=== PATIENT | female | born 1980 | race Caucasian/White ===

== ENCOUNTER 2025-01-29 07:28 | Outpatient (OUT) | payer BC, SELFPAY ==
--- OUTSIDE RECORDS SUMMARY | 2025-01-15 05:15 | XMS_ITS ---
Author Organization [facility] [place] Address [address] [place] [address] Care Team Providers Care B2B Sales Executive Name Role Phone Rhiannon Andrew Primary Care Provider Allergies Allergen (clinical drug ingredient) Drug/Non Drug Allergy documented on EMR Reaction Allergy Type Onset Date Status sulfamethoxazole / trimethoprim Bactrim rash Drug Allergy Active shrimp allergenic extract Shrimp (Diagnostic) Unknown Drug Allergy Active Shellfish (FN) Shellfish-derived Products Unknown Drug Allergy Active Penicillin rash Drug Allergy Active REASON FOR VISIT wellness- needs labs done, Pain in the left armpit area- did go get her mammogram, diag mammogram and US- does have to follow-up every 6 months Medications Medication SIG (Take, Route, Frequency, Duration) Notes Start Date End Date Status Vitamin E Active Albuterol Sulfate HFA 108 (90 Base) MCG/ACT 1 puff Inhalation every 4 hrs PRN PRN 09/21/2023 Active Biotin Active Zinc Active Probiotic Active Multivitamin Active Social History Tobacco Use: Social History Observation Description Date Details (start date - stop date) Never Smoker NA - NA Tobacco Use/Smoking Question Answer Notes Patient is a nonsmoker Vital Signs Blood pressure systolic 124 mm Hg 01/16/20 25 Blood pressure diastolic 80 mm Hg 025 Height 57 in 01/15/2025 Weight 135.4 lbs 01/15/2025 BMI 29.3 kg/m2 01/15/2025 Encounters Encounter Location Date Provider Diagnosis [facility] [address] [place] [address] 01/15/2025 Andrew Jurado Well adult Z00.0 0 Assessments Encounter Date Diagnosis (ICD Code) Assessment Notes Treatment Notes Treatment Clinical Notes Section Notes 01/15/2025 Well adult (ICD-10 - Z00.00) Plan Of Treatment Pending Test Test Name Order Date HEMOGLOBIN A1C (GLYCO) 01/15/2025 IRON, TOTAL 01/15/2025 LIPID PANEL (CHOL/TRIG/HDL/LDL) 01/16/20 25 VITAMIN D, 25 LEVEL (TOTAL) 01/15/2025 Insulin Level 01/15/2025 THYROID PANEL (T4/TSH/FREE T3) 5 CMP (COMP MET ROMAN) w/eGFR CKD-EPI 2024 CBC WITH DIFF 01/15/2025 Progress Notes * Amber HANNON RDOB: [birth year] (44 yo F)Acc No.[id number]:01/15/2025 Progress Note Patient: Amber PERALES Provider: Irving Jurado ([facility]), :1980 A ge:44 Y S ex:Female Date:01/15/2025 Address:[address] [place] [address], [id number] Check In:08:58 AM ESTCheck O ut:09:46 AM EST Subjective: * Chief Complaints: * W shan- needs labs donePain in the left armpit area- did go get her mammogram, diag mammogram and US- does have to follow-up every 6 months * HPI: D epression Screening: PHQ-2 (2015 Edition) L ittle interest or pleasure in doing things??Not at all F eeling down, depressed, or hopeless? N ot at all T otal Score 0 + FH Breast cancer - will see how blood work loosk - may brittany MRI due to FH breast cnacner and masses in breast - -mildly supicious. * ROS: E ENT: hearing changes d enies. v isual changes d enies.?non-healing mouth sores d enies. s wollen glands or neck lumps d enies. h oarseness d enies. s ore throat d enies. d ifficulty swallowing d enies. n ose bleeds d enies. n brinda congestion d enies. e ar ache d enies. e ar discharge?denies. r inging in ears d enies. l ight sensitivity d enies. e ye pain d enies. b lurring d enies. e ye irritation d enies. d ouble vision d enies.?vision loss d enies. G eneral/Constitutional: Sweats: D enies. F atigue d enies. S leep problems d enies. A norexia d enies. M alaise d enies. W eight loss d enies.?Fatigue or Weakness d enies. F ever or Chills d enies. C ardiovascular: Shortness of Breath w/lying flat d enies. L ightheadedness/dizziness d enies. C hest tightness/ heavy pressure d enies. S welling of legs, ankles, or feet d enies. W aking up with shortness of breath d enies. C hest pain denies. P alpitations d enies. W eight gain d enies. R espiratory: Chronic or frequent cough d enies. C oughing up blood?denies. D ifficulty breathing d enies. P roductive cough d enies. S noring?denies. S hortness of breath that awakens from sleep (PND) d enies. C hest pain d enies. S putum production d enies. W heezing d enies. M usculoskeletal: Joint pain d enies. J oint Fluid d enies. B ack pain d enies. K nee pain d enies. N monica pain d enies. J oint Stiffness d enies. M uscle cramps d enies. W eakness of muscles d enies. A rthritis d enies. M uscle aches d enies. P ain in shoulder(s) d enies. S wollen joints d enies. * Active Problem List Z00.00 Well adult Modified On:11/24/2022W/U Status:confirmed R19.7 Diarrhea Modified On:11/24/2022/U Status:confirmed J45.909 Asthma Modified On:09/21/2023W/U Status:confirmed * Medical History: * Surgical History: C -section x1 * Hospitalization/Major Diagno stic Procedure: D enies Past Hospitalization * Family History: F ather: alive, glaucoma, crohns disease, diagnosed with Unspecified heart disease. M other: alive, diagnosed with Unspecified heart disease. M aternal Grandmother: alive, COPD. * Social History: T obacco Use: T obacco Use/Smoking P atient is a n onsmoker * Medications: T akingAlbuterol Sulfate HFA 108 (90 Base) MCG/ACT Aerosol Solution 1 puff Inhalation every 4 hrs PRN , Notes to Pharmacist: PRNBiotin Multivitamin Probiotic Vitamin E Zinc Taking Albuterol Sulfate HFA 108 (90 Base) MCG/ACT Aerosol Solution 1 puff Inhalation every 4 hrs PRN , Notes to Pharmacist: PRNTaking Biotin Taking Multivitamin Taking Probiotic Taking Vitamin E Taking Zinc DiscontinuedlevoFLOXacin 750 MG Tablet 1 tablet Orally Once a day predniSONE 20 MG Tablet 3 tablets Orally Once a day Medication List reviewed and reconciled with the patientDiscontinued levoFLOXacin 750 MG Tablet 1 tablet Orally Once a day Discontinued predniSONE 20 MG Tablet 3 tablets Orally Once a day Medication List reviewed and reconciled with the patient * Allergies: P enicillin: rashBactrim: rashShellfish-derived ProductsShrimp (Diagnostic)no[Allergies Verified] Objective: * Vitals: W t:135.4lbs, Ht: 57 in, BP:124/80mm Hg, BMI:29.3Index, Ht-cm: 144.78 cm, Wt-k.42 kg. * Examination: P hysical Exam: GENERAL: w ell developed, well nourished, in no acute distress. HEAD: n ormocephalic/atraumatic. EYES: p upils equal, round and reactive to light, conjunctivae and sclerae normal. EARS: n o deformity or lesion of external ear, canals and TM appear normal bilaterally, TM's intact, not inflamed with normal light reflex, hearing grossly normal to conversational speech. NOSE: n o deformity, discharge, inflammation, or lesions.? MOUTH: m ucous membranes moist, normal oropharynx and posterior pharynx without lesions or exudates, tongue normal, dentition normal. NECK: n monica supple, no masses or palpable cervical nodes, trachea midline, thyroid without nodules, masses, tenderness, or enlargement. CHEST: n o chest wall deformity, no chest wall tenderness.? LUNGS: n ormal respiratory effort and clear to auscultation, no wheezes, rales, or rhonchi, good air exchange. CARDIO: r egular rate and rhythm, normal S1 and S2, nor murmur, rub, or gallop. PULSES: n ormal capillary refill. ABDOMEN: s oft, non-distended, non-tender, no masses. MUSCULOSKELETAL: n o deformity or scoliosis noted, normal range of motion, joints normal, no erythema, edema, effusion, or ecchymosis. EXTREMITY: n o clubbing, cyanosis, edema, or deformity with normal ROM in both upper and lower bilateral extremities. NEUROLOGIC: g rossly normal. SKIN: n o rashes, ulcerations, or suspicious lesions. LYMPH NODES: n o cervical adenopathy, nodes normal. MENTAL STATUS: a lert and oriented x3, normal mood and affect. Assessment: * Assessment: 1. W ell adult - Z00.00 (Primary) Plan: * Treatment: * Procedure Codes: * Preventive Medicine: Screenings/Counseling: B IL ACTION PLAN Above Normal BMI Follow-up D ietary management education, guidance, and counseling * * Sign off status: Completed Visit Status: C HK (Check Out) true * Provider: Irving Jurado ([facility])MD Date: 0 01/15/2025 Generated for Phu ruffin/Debra/eTransmitting on: 0 01/29/2025 07:36 AM EDT History and Physical Notes * HPI (History of Present Illness) Category Sub-Category Detail Notes Category Not es Depression Screening PHQ-2 (2015 Edition) Little interest or pleasure in doing things?: Not at all + FH Breast cancer - will see how blood work loosk - may brittany MRI due to FH breast cnacner and masses in breast - -mildly supicious Feeling down, depressed, or hopeless?: N ot at all Total Score: 0 Examination Category Sub-Category Detail Notes Category Not es Physical Exam GENERAL: well developed, well nourished, in no acute distress HEAD: normocephalic/atraum atic EYES: pupils equal, round and reactive to light, conjunctivae and sclerae normal EARS: no deformity or lesi on of external ear, canals and TM appear normal bilaterally, TM's intact, not inflamed with normal light reflex, hearing grossly normal to conversational speech NOSE: no deformity, discha rge, inflammation, or lesions MOUTH: mucous membranes bassam st, normal oropharynx and posterior pharynx without lesions or exudates, tongue normal, dentition normal NECK: neck supple, no mass es or palpable cervical nodes, trachea midline, thyroid without nodules, masses, tenderness, or enlargement CHEST: no chest wall deform ity, no chest wall tenderness LUNGS: normal respiratory e ffort and clear to auscultation, no wheezes, rales, or rhonchi, good air exchange CARDIO: regular rate and rhy thm, normal S1 and S2, nor murmur, rub, or gallop PULSES: normal capillary ref ill ABDOMEN: soft, non-distended, non-tender, no masses RECTAL: MUSCULOSKELETAL: no deformity or scol iosis noted, normal range of motion, joints normal, no erythema, edema, effusion, or ecchymosis EXTREMITY: no clubbing, cyanosi s, edema, or deformity with normal ROM in both upper and lower bilateral extremities NEUROLOGIC: grossly normal SKIN: no rashes, ulceratio ns, or suspicious lesions LYMPH NODES: no cervical adenopat hy, nodes normal MENTAL STATUS: alert and oriented x 3, normal mood and affect
--- OUTSIDE RECORDS SUMMARY | 2025-01-29 07:36 | XMS_ITS | Clinical Summary ---
Author Organization [facility] Address [address] [place] [address] Care Team Providers Care Supervisor Data Processing Name Role Phone Marv Jurado MD Primary Care Provider [phone] Allergies Active Allergy Reactions Criticality Noted Date Comments Amoxicillin 12/12/2022 Other Reaction(s): Unknown Amoxicillin-Pot Clavulanate 12/13/19 Other Reaction(s): Unknown Penicillin G 12/12/2022 Other Reaction(s): Unknown Shellfish-Derived Products 3 Other Reaction(s): Unknown Shrimp (Diagnostic) 12/12/2022 Other Reaction(s): Unknown Medications albuterol HFA 90 mcg/act inhaler Inhale every 6 (six) hours if needed for wheezing. Active beclomethasone HFA (Qvar RediHaler) 40 MCG/ACT inhaler Inhale 40 mcg in the morning and 40 mcg before bedtime. Rinse mouth with water after use to reduce aftertaste and incidence of candidiasis. Do not swallow.. Active alpha tocopherol (Natural Vitamin E) 400 units capsuleIndicati ons:Mastalgia Take 1 capsule (400 Units) by mouth Daily 30 capsule 11 5 12/19/19 26 Active Active Problems Problem Noted Date Diagnosed Date Intrauterine device surveillance 01/26/2023 Encounters Date Type Department Care Team Description 01/04/2025 Orders Only [facility] [address] [place] [address] Zafar Hardwick MD Mammogram abnormal (Primary Dx); Mastalgia; Lymph nodes enlarged 01/04/2025 Results Follow-Up [facility] [address] [place] [address] Zafar Hardwick MD Bilateral breast US limited 01/01/2025 2:30 PM EDT Ancillary Procedure [facility] [address] [place] [address] Mastalgia 01/01/2025 2:00 PM EDT Ancillary Procedure [facility] [address] [place] [address] Mastalgia 01/01/2025 Travel 12/20/2024 Results Follow-Up [facility] [address] [place] [address] Zafar Hardwick MD IGP, APT HPV,RFX 16/18,45 12/18/2024 9:45 AM EDT Office Visit [facility] [address] [place] [address] Zafar Hardwick MD Encounter for gynecological examination without abnormal finding (Primary Dx); Encounter for screening mammogram for malignant neoplasm of breast; Encounter for screening for cervical cancer; Intrauterine device surveillance; Mastalgia 12/18/2024 Travel from Last 3 Months Family History Relation Name Status Comments Father Alive Mother Alive Paternal Grandfather Paternal Grandmother Social History Tobacco Use Types Packs/Day Years Used Date Smoking Tobacco: Never Smokeless Tobacco: Never Alcohol Use Standard Drinks/Week Comments Yes 1 (1 standard drink = 0.6 oz pur e alcohol) AUDIT-C Answer Date Recorded Q1: How often do you have a drink containing alc ohol? Monthly or less 12/18/2023 Q2: How many drinks containi ng alcohol do you have on a typical day when you are drinking? 1 or 2 12/18/2023 Q3: How often do you have si x or more drinks on one occasion? Less than monthly 12/18/2023 PHQ-2 Answer Date Recorded Patient Health Questionnaire-2 Score 0 12/18/2023 Comments No Sex and Gender Information Value Date Recorded Sex Assigned at Female 12/05/2022 8:32 PM EDT Legal Sex Female 11:47 PM EDT Gender Identity Female 12/05/2022 8:32 PM EDT Sexual Orientation Straight 12/05/2022 8: 32 PM EDT Last Filed Vital Signs Vital Sign Reading Time Taken Comments Blood Pressure 118/68 12/18/2024 9:49 AM EDT Pulse - - Temperature - - Respiratory Rate - - Oxygen Saturation - - Inhaled Oxygen Concentration - - Weight 61.2 kg (135 lb) 12/18/2024 9:49 AM EDT Height 143.5 cm (4' 8.5 ) 12/12/2022 12:48 PM ED T Body Mass Index 29.73 12/12/2022 12:48 PM EDT Plan of Treatment Upcoming Encounters Date Type Department Care Team (Late st Contact Info) Description 12/24/2025 9:45 AM EDT Office Visit [facility] [address] [place] [address] Zafar Hardwick MD [address] [place] [address] Procedures Procedure Name Priority Date/Time Associated Diagnosis Comments BI US BREAST LIMITED BILATERAL Routine 01/01/2025 2:34 PM EDT Mastalgia BI MAMMOGRAM DIAGNOSTIC TOMOSYNTHESIS BILATERAL Routine 01/01/2025 2:01 PM EDT Mastalgia IGP, APT HPV,RFX 16/18,45 Routine 12/18/2024 12:00 AM EDT Encounter for gynecological examination without abnormal finding Encounter for screening for cervical cancer from Last 3 Months Results * Bilateral breast US limited (01/01/2025 2:34 PM EDT) Anatomical Region Laterality Modality Breast Bilateral Ultrasound 01/02/2025 3:35 PM EDT Impressions 01/02/2025 3:45 PM EDT Impression: Enlarged axillary lymph nodes, 1 moderately enlarged lymph node on the right and 3 mildly enlarged lymph nodes on the left. No obvious associated cortical thickening. Findings are most likely reactive, other possibly would be less likely. Likely 2 right breast cysts, the largest likely cyst correlates with the asymmetric density on the mammogram study. No obvious neoplasm. When correlating all studies no convincing evidence of neoplasm. Follow-up diagnostic mammogram study of the right breast is recommended in 6 months. Follow-up ultrasound study of the breasts to include both axillary regions as well as the right breast from the 9:00 to the 12 o'clock position to include areas of interest recommended in 6 months. BI-RADS 3 ELECTRONICALLY SIGNED BY: Jordan Mays M.D. Narrative 01/02/2025 3:45 PM EDT Examination: BI US BREAST LIMITED BILATERAL Reason for Study: bilateral axillary pain Comparison: Diagnostic mammogram study of the breasts dated 01/01/2025. Technique: Bilateral breast ultrasound study was performed. Both axillary regions were evaluated. Images on the right were also obtained from the 9 to 12 o'clock position. Images on the left were also obtained from the 11:00 to 3 o'clock position. Findings: On the right at the 10 o'clock position approximately 5 cm from the nipple decreased echogenicity measuring 2.0 x 1.3 x 0.9 cm likely representing a cyst. This finding correlates with the asymmetric density noted on the mammogram study. At the 12 o'clock position approximately 3.6 cm from the nipple area of decreased echogenicity likely representing a cyst measuring 0.6 x 0.6 x 0.5 cm. In the right axillary region compatible with a mild to moderately enlarged lymph node measuring 3.4 x 2.7 x 1.5 cm. No obvious cortical thickening, the finding is likely reactive. On the left no obvious focal mass from the 11:00 to 3 o'clock position. In the left axillary region findings compatible with 3 mildly enlarged lymph nodes measuring 2.2 x 1.9 x 0.9 cm, 1.8 x 1.5 x 1.2 cm and 1.6 x 1.4 x 1.2 cm. No obvious associated cortical thickening, findings are likely reactive. us Zafar Hardwick MD IMG US PROCEDURES Final Result * Bilateral diagnostic mammogram with tomosynthesis (01/01/2025 2:01 PM EDT) Anatomical Region Laterality Modality Breast Bilateral Mammography 01/02/2025 3:20 PM EDT Impressions 01/02/2025 3:35 PM EDT No specific evidence of malignancy seen in either breast. Asymmetric density on the right likely representing a cyst when correlated with ultrasound study. Ultrasound study demonstrates likely right breast cysts as well as nonspecific bilateral axillary adenopathy greater on the right most likely reactive. Follow- up diagnostic mammogram study of the right breast with compression views in the area of interest and true lateral view is recommended in 6 months. Bilateral breast ultrasound study to include both axillary regions as well as the right breast from the 9:00 to the 12 o'clock position to include areas of interest recommended in 6 months to assess stability. BIRADS 3 - Probably Benign Findings DENSITY: The breasts are heterogeneously dense, which may obscure small masses. FOLLOW-UP: Diagnostic Mammogram in 6 Months, breast ultrasound in 6 months Board Certified Radiologists. Accredited by the ACR and FDA. MAMMOGRAPHY IS VERY IMPORTANT TO YOUR HEALTH. THE [place]IET[employer] GUIDELINES RECOMMEND THAT WOMEN 40 YEARS OF AGE AND OLDER SHOULD HAVE A MAMMOGRAM EVERY YEAR. A REMINDER LETTER WILL BE SENT AT THE APPROPRIATE TIME. ELECTRONICALLY SIGNED BY: Jordan Mays M.D. Narrative 01/02/2025 3:35 PM EDT EXAMINATION: BI MAMMOGRAM DIAGNOSTIC TOMOSYNTHESIS BILATERAL CLINICAL HISTORY: bilateral mastalgia axillary TECHNIQUE: Diagnostic digital mammogram study of both breasts was performed with 2D and 3D tomosynthesis imaging. Study was compared to the screening mammogram study of the breasts dated 01/22/2024 and bilateral breast ultrasound study dated 01/01/2025. FINDINGS: Standard views of the breasts as well as true lateral views were obtained. Fairly well-circumscribed asymmetric density measuring approximately 1.8 x 1.6 cm noted in mid/upper/outer portion of the right breast, likely representing a cyst when correlated with ultrasound. No convincing evidence of neoplasm. Ultrasound study demonstrates likely right breast cysts as well as nonspecific bilateral axillary adenopathy greater on the right most likely reactive. Zafar Hardwick MD IMG BI PROCEDURES Final Result * IGP, APT HPV,RFX 16/18,45 (12/18/2024 12:00 AM EDT) Diagnosis: Comment [facility] Comment:NEGATIVE FOR INTRAEP ITHELIAL LESION OR MALIGNANCY. Specimen Adequacy: Comment [facility] Comment: Satisfactory for evaluation. Endocervical and/or squamous metaplastic cells (endocervical component) are present. Clinician Provided ICD10: Comment [facility] Comment: Z01.419 Z12.4 Performed By: Comment [facility] Comment:Delores Del Valle, Cytolog ist (ASCP) Cyto Comments . [facility] Note: Comment [facility] Comment: The Pap smear is a screening test designed to aid in the detection of premalignant and malignant conditions of the uterine cervix. It is not a diagnostic procedure and should not be used as the sole means of detecting cervical cancer. Both false-positive and false-negative reports do occur. Test Methodology: Comment [facility] Comment: This liquid based ThinPrep(R) pap test was screened with the use of an image guided system. HPV Aptima Negative Negative [facility] Comment: This nucleic acid amplification test detects fourteen high-risk HPV types (16,18,31,33,35,39,45,51,52,56,58,59,66,68) without differentiation. Vaginal Fluid 12/18/2024 12/19/2024 Narrative [facility] - 12/20/2024 9:07 AM EDT Performed at: - [address] [id number] Precision Lens Generator: Dinorah Lau MD, Phone: [phone] Performed at: - [facility] [id number] Precision Lens Generator: Dinorah Lau MD, Phone: [phone] Specimen Comment: No. of containers..01 ThinPrep Vial us Zafar Hardwick MD LAB BLOOD ORDERABLES Final Res ult [facility] from Last 3 Months Insurance BCBS Care Teams Supervisor Data Processing Relationship Specialty Start Date End Date Marv Jurado MD PCP - General 12/11/22
--- OUTSIDE RECORDS SUMMARY | 2025-01-29 07:36 | XMS_ITS | Encounter Summary ---
Author Organization [facility] Address [address] [place] [address] Care Team Providers Care Dispatcher Chief Oil Name Role Phone Marv Jurado MD Primary Care Provider [phone] Encounter Details Date Type Department Care Team (Late st Contact Info) Description 12/20/2024 Results Follow-Up [facility] [address] [facility] [address] [place] [phone] Zafar Hardwick MD [address] [facility] [address] [place] [address] IGP, APT HPV,RFX 16/18,45 Social History Tobacco Use Types Packs/Day Years [...] Orientation Straight 12/05/2022 8: 32 PM EDT documented as of this encounter Plan of Treatment Upcoming Encounters Date Type Department Care Team (Late st Contact Info) Description 12/24/2025 9:45 AM EDT Office Visit [facility] [address] [place] [address] Zafar Hardwick MD [address] [facility] [address] [place] [address] documented as of this encounter Visit Diagnoses Not on filedocumented in this encounter Care Teams Dispatcher Chief Oil Relationship Specialty Start Date End Date Marv Jurado MD PCP - General 12/11/22 documented as of this encounter
--- OUTSIDE RECORDS SUMMARY | 2025-01-29 07:36 | XMS_ITS | Encounter Summary ---
Author Organization [facility] Address [address] [place] [address] Care Team Providers Care Electronics Design Engineer Name Role Phone Marv Jurado MD Primary Care Provider [phone] Encounter Details Date Type Department Care Team (Late st Contact Info) Description 01/04/2025 Results Follow-Up [facility] [address] [facility] [address] [place] [phone] Zafar Hardwick MD [address] [facility] [address] [place] [address] Bilateral breast US limited Social History Tobacco Use Types Packs/Day Years [...] 8:32 PM EDT Sexual Orientation Straight 12/05/2022 8 :32 PM EDT documented as of this encounter Miscellaneous Notes * Result Encounter Note - Zafar Hardwick MD - 01/04/2025 12:48 PM EDT Confirm pt makes appt documented in this encounter Plan of Treatment Upcoming Encounters Date Type Department Care Team (Late st Contact Info) Description 12/24/2025 9:45 AM EDT Office Visit [facility] [address] [place] [address] Zafar Hardwick MD [address] [facility] [address] [place] [address] documented as of this encounter Visit Diagnoses Not on filedocumented in this encounter Care Teams Electronics Design Engineer Relationship Specialty Start Date End Date Marv Jurado MD PCP - General 12/11/22 documented as of this encounter
--- OUTSIDE RECORDS SUMMARY | 2025-01-29 07:36 | XMS_ITS | Patient Health Record ---
Author Organization [facility] in [place] Address [address] [place] [address] Care Team Providers Care Heel Molder Name Role Phone Andrew Jurado Primary Care Provider Allergies Allergen (clinical drug ingredient) Drug/Non Drug Allergy documented on EMR Reaction Allergy Type Onset Date Status sulfamethoxazole / trimethoprim Bactrim rash Drug Allergy Active shrimp allergenic extract Shrimp (Diagnostic) Unknown Drug Allergy Active Shellfish (FN) Shellfish-derived Products Unknown Drug Allergy Active Penicillin rash Drug Allergy Active Reason For Referral No Information Medications Medication SIG (Take, Route, Frequency, Duration) Notes Start Date End Date Status Vitamin E Active Albuterol Sulfate HFA 108 (90 Base) MCG/ACT 1 puff Inhalation every 4 hrs PRN PRN 09/21/2023 Active Biotin Active Multivitamin Active Zinc Active Probiotic Active Social History Tobacco Use: Social History Observation Description Date Details (start date - stop date) Never Smoker NA - NA Tobacco Use/Smoking Question Answer Notes Patient is a nonsmoker Problems Problem Type SNOMED Code ICD Code Onset Dates Problem Status W/U Status Risk Notes Problem Asthma (842143475) Asthma (J45.909) Active confirmed Problem Diarrhea (R19.7) Active confirmed Problem Well adult (122762123) Well adult (Z00.00) Active confirmed Vital Signs Blood pressure diastolic 80 mm Hg 01/15/2025 Height 57 in 01/15/2025 Blood pressure systolic 124 mm Hg 01/15/2025 Weight 135.4 lbs 01/15/2025 BMI 29.3 kg/m2 01/15/2025 Encounters Encounter Location Date Provider Diagnosis [facility] [address] [place] [address] 01/15/2025 Andrew Jurado Well adult Z00.0 0 Assessments Encounter Date Diagnosis (ICD Code) Assessment Notes Treatment Notes Treatment Clinical Notes Section Notes 01/15/2025 Well adult (ICD-10 - Z00.00) Plan Of Treatment Pending Test Test Name Order Date CMP (COMPLETE METABOLIC PANEL) 3 CMP (COMPLETE METABOLIC PANEL) 4 HEMOGLOBIN A1C (GLYCO) 11/24/2022 HEMOGLOBIN A1C (GLYCO) 09/21/2023 HEMOGLOBIN A1C (GLYCO) 01/15/2025 IRON, TOTAL 01/15/2025 IRON, TOTAL 09/21/2023 IRON, TOTAL 11/24/2022 LIPID PANEL (CHOL/TRIG/HDL/LDL) 09/21/19 24 LIPID PANEL (CHOL/TRIG/HDL/LDL) 11/25/19 23 LIPID PANEL (CHOL/TRIG/HDL/LDL) 01/16/20 25 CBC WITH DIFF 11/24/2022 CBC WITH DIFF 09/21/2023 VITAMIN D, 25 LEVEL (TOTAL) 09/21/2023 VITAMIN D, 25 LEVEL (TOTAL) 01/15/2025 Insulin Level 01/15/2025 Insulin Level 09/21/2023 Insulin Level 11/24/2022 THYROID PANEL (T4/TSH/FREE T3) 3 THYROID PANEL (T4/TSH/FREE T3) 4 THYROID PANEL (T4/TSH/FREE T3) 5 CMP (COMP MET ROMAN) w/eGFR CKD-EPI 2024 CBC WITH DIFF 01/15/2025 Insurance Providers Payer Name Payer Address Payer Phone Subscriber Number Group Number Insured Name Patient Relationship to Insured Coverage Start Date Coverage End Date [employer] [address] [place] [address] [id number] Amber Camejo Self - patient is the insured 3 Medical (General) History Medical History History ICD Code Asthmatic bronchitis J45.909 Calculus (=stone) N20.9 Low back pain at multiple sites M54.50 Pyelonephritis N12 Surgical History Surgery Date(Month/Year) x1
[2025-01-29 08:18] LABS: Hematocrit 40.4 % (36.0-48.0); Hemoglobin 13.5 g/dL (12.0-16.0); Immature Granulocytes Abs Auto 0.01 10^3/uL (0.00-0.03); Immature Granulocytes Pct Auto 0.1 % (0.0-0.5); Lymphocytes Absolute Auto 2.4 10^3/uL (1.2-3.8); Mean Corpuscular HGB Conc 33.4 g/dL (29.9-35.2); Mean Corpuscular Hemoglobin 31.1 pg (26.7-34.0); Mean Corpuscular Volume 93.1 fL (81.0-99.0); Platelet Count 279 10^3/uL (150-450); Red Blood Count 4.34 10^6/uL (4.20-5.40); White Blood Count 7.7 10^3/uL (4.0-11.0)
[2025-01-29 10:38] LABS: Alanine Aminotransferase 24 U/L (14-59); Albumin Globulin Ratio 1.1; Albumin Level 3.8 g/dL (3.4-5.0); Alkaline Phosphatase 52 U/L (46-116); Anion Gap 13.3; Aspartate Amino Transferase 18 U/L (15-37); Blood Urea Nitrogen 10.0 mg/dL (7.0-18.0); Calcium 8.8 mg/dL (8.5-10.1); Carbon Dioxide 25.5 mmol/L (21.0-32.0); Chloride 105 mmol/L (98-107); Cholesterol 208 mg/dL (<=200); Estimated GFR (African America >60 (>=60 mL/min/1.73m^2); Estimated GFR (Non-African Ame >60 (>=60 mL/min/1.73m^2); Free T3 3.42 pg/mL (2.18-3.98); Globulin 3.6 g/dL; Glucose 81 mg/dL (74-106); HDL Cholesterol 44 mg/dL (40-60); Potassium 3.8 mmol/L (3.5-5.1); Sodium 140 mmol/L (136-145); Thyroid Stimulating Hormone 3.501 uIU/mL (0.358-3.740); Total Protein 7.4 g/dL (6.4-8.2); Triglycerides 105 mg/dL (<=150); VLDL CHOLESTEROL 21.0 mg/dL
[2025-01-29 11:39] LABS: Iron 53.0 ug/dL (50.0-170.0)
== END 2025-01-29 07:29 | disposition home or self-care (01) ==
PROVIDERS: PCP Family Medicine; Visit Provider Family Medicine
DX: Z00.00 Encounter for general adult medical examination without abnormal findings (principal)
CPT/HCPCS: 36415; 80053; 80061; 82306; 83036; 83525; 83540; 84436; 84443; 84481; 85025